=== PATIENT | female | born 1975 | race Two or more races ===

== ENCOUNTER 2020-04-10 08:25 | Outpatient (CLI) | payer OTHER | END 2020-04-10 08:44 | disposition home or self-care (01) | LOC: NUCLEAR 08:25 | PROVIDERS: ATTEND Internal Medicine Endocrinology, Diabetes & Metabolism | DX: E04.2 Nontoxic multinodular goiter (principal); R94.6 Abnormal results of thyroid function studies; R73.01 Impaired fasting glucose | CPT/HCPCS: 78012; A9531 ==

== ENCOUNTER 2020-08-14 09:57 | Outpatient (CLI) | payer OTHER | END 2020-08-14 10:00 | disposition home or self-care (01) | LOC: SONOGRAMA 09:57 | PROVIDERS: ATTEND Pathology Anatomic Pathology & Clinical Pathology | DX: E04.2 Nontoxic multinodular goiter (principal) ==

== ENCOUNTER 2023-03-03 11:59 | Outpatient (CLI) | payer OTHER | END 2023-03-03 12:02 | disposition home or self-care (01) | LOC: SONOGRAMA 11:59 | PROVIDERS: ATTEND Pathology Anatomic Pathology | DX: D34 Benign neoplasm of thyroid gland (principal); E04.9 Nontoxic goiter, unspecified ==